=== PATIENT | female | born 1990 | race American Indian/Alaskan Native ===

== ENCOUNTER 2018-04-24 20:58 | Emergency (ER) | payer SELFPAY ==
--- NOTE | 2018-04-25 00:54 | Emergency Department Report ---
ED ENT HPI - General Chief complaint: Sore Throat Stated complaint: SORE THROAT Source: family Mode of arrival: Ambulatory Limitations: No Limitations - History of Present Illness Initial comments: 28 yo female with a past medical history asthma and hypertension presents to the hospital complaining of sore throat 2 weeks. Patient states that is uncomfortable to swallow and she has move her neck in order swallow comfortably. She denies fever or shortness of breath. - Related Data Allergies Allergy/AdvReac Type Severity Reaction Status Date / Time No Known Allergies Allergy Unverified 04/24/18 22:01 ED Dental HPI - General Chief complaint: Sore Throat Stated complaint: SORE THROAT Source: family Mode of arrival: Ambulatory Limitations: No Limitations - Related Data Allergies Allergy/AdvReac Type Severity Reaction Status Date / Time No Known Allergies Allergy Unverified 04/24/18 22:01 ED Review of Systems ROS: Stated complaint: SORE THROAT Other details as noted in HPI Comment: All other systems reviewed and negative ED Past Medical Hx - Past Medical History Previous Medical History?: Yes Hx Hypertension: Yes Hx Asthma: Yes - Surgical History Past Surgical History?: No - Social History Smoking Status: Former Smoker Substance Use Type: Alcohol, Marijuana ED Physical Exam - General Limitations: No Limitations - Other Other exam information: General: No limitations, patient is alert in no acute distress Head exam: Atraumatic, normocephalic Eyes exam: Normal appearance, pupils equal reactive to light, extraocular movements intact ENT: Moist mucous membrane, normal oropharynx, no exudates, no tender lymphadenopathy, no [place] Neck exam: Normal inspection, full range of motion, no meningismus nontender, no significant thyromegaly appreciated on exam Respiratory exam: Clear to auscultation bilateral, no wheezes, rales, crackles Cardiovascular: Normal rate and rhythm, normal heart sounds Abdomen: Soft, nondistended, and nontender, with normal bowel sounds, no rebound, or guarding Extremity: Full range of motion normal inspection no deformity Back: Normal Inspection, full range of motion, no tenderness Neurologic: Alert, oriented x3, cranial nerves intact, no motor or sensory deficit Psychiatric: normal affect, normal mood Skin: Warm, dry, intact ED Course Vital Signs 04/24/18 21:03 Temperature 98.5 F Pulse Rate 96 H Respiratory 18 Rate Blood Pressure 143/106 O2 Sat by Pulse 95 Oximetry ED Medical Decision Making - Medical Decision Making Patient had ongoing sore throat for 2 weeks without signs of infection clinically. Strep test is negative. Denies fever, and patient does not have lymphadenopathy or exudates. No significant thyromegaly appreciated. Patient we will refer to PMD and ENT for further evaluation. - Differential Diagnosis pharyngitis, thyromegaly, tonsillitis, laryngitis Critical Care Time: No Critical care attestation.: If time is entered above; I have spent that time in minutes in the direct care of this critically ill patient, excluding procedure time. ED Disposition Clinical Impression: Sore throat Disposition: DC- TO HOME OR SELFCARE Is pt being admited?: No Does the pt Need Aspirin: No Condition: Stable Instructions: Pharyngitis (ED) Additional Instructions: Follow up with the primary care doctor and ENT doctor for further evaluation. Return is symptoms worsen as indicated by your discharge instructions. You may take [id number] throat lozenges as needed for discomfort. Referrals: [facility] [Provider Group] - 3-5 Days (Primary care clinic) BALDEMAR CARNES MD [Staff Physician] - 3-5 Days (ENT doctor) Time of Disposition: 00:54
[2018-04-25 01:01] VITALS: BP 118/72
== END 2018-04-25 00:59 | disposition home or self-care (01) ==
LOC: ED 20:58
DX: J45.909 Unspecified asthma, uncomplicated (principal); I10 Essential (primary) hypertension; F12.10 Cannabis abuse, uncomplicated; Z87.891 Personal history of nicotine dependence
CPT/HCPCS: 87116; 87430; 99283

== ENCOUNTER 2018-11-10 18:15 | Outpatient (CLI) | payer MEDICAID ==
[2018-11-10] MEDS ORDERED: LACTATED RINGERS 500 ML IV ONE (18:20)
[2018-11-10 19:00] LABS: Amphetamine Screen,Urine PRESUMPTIVE NEGATIVE; Benzodiazepines Screen,Urine PRESUMPTIVE NEGATIVE; Cannabinoid Screen,Urine PRESUMPTIVE NEGATIVE; Cocaine Screen,Urine PRESUMPTIVE NEGATIVE; Methadone Screen,Urine PRESUMPTIVE NEGATIVE; Opiate Screen,Urine PRESUMPTIVE NEGATIVE
[2018-11-10 19:05] LABS: Bilirubin,Urine NEG (Negative); Blood,Urine MOD (Negative); Color,Urine Yellow (Yellow); Mucus,Urine FEW /HPF; Protein,Urine <15 mg/dL mg/dL (Negative); Urobilinogen,Urine < 2.0 mg/dL (<2.0)
[2018-11-10 19:30] VITALS: BP 118/79
[2018-11-10] MEDS ORDERED: PROCARDIA*For Tocolysis only PO ONE (19:59)
== END 2018-11-10 22:15 | disposition home or self-care (01) ==
LOC: TRG 18:15
PROVIDERS: ATTEND Obstetrics & Gynecology
DX: O46.8X2 Other antepartum hemorrhage, second trimester (principal); O60.02 Preterm labor without delivery, second trimester; Z3A.25 25 weeks gestation of pregnancy
CPT/HCPCS: 36415; 80307; 81001; 82731; J7120